=== PATIENT | female | born 1990 | race Caucasian/White ===

== ENCOUNTER 2021-05-12 09:19 | Emergency (ER) | payer BC ==
[2021-05-12 10:16] VITALS: BMI 21.4
[2021-05-12] MEDS ORDERED: BAMLANIVIMAB 700 MG, ETESEVIMAB 1,400 MG in SODIUM CHLORIDE 100 ML IVPB ONE (10:23)
[2021-05-12 12:49] VITALS: BP 118/70; PULSE 100; TEMP 98.8
== END 2021-05-12 14:39 | disposition home or self-care (01) ==
LOC: JER 09:19 → JCOVINFU 09:19
DX: U07.1 COVID-19 (principal)
CPT/HCPCS: 99284-25; M0245; Q0239; Q0245